=== PATIENT | male | born 1975 | race Caucasian/White ===

== ENCOUNTER 2019-07-04 09:23 | Emergency (ER) | payer OTHER ==
[2019-07-04] MEDS ORDERED: Sodium Chloride 0.9% 10 ML Syringe FLUSH PRN (09:39)
[2019-07-04] MEDS ORDERED: Sodium Chloride 0.9% 1,000 ML IV SCH (09:45)
--- NOTE | 2019-07-04 10:04 | EDM.PDOC ---
<Rashad Casillas - Last Filed: 07/04/19 12:04> ED HPI GENERAL MEDICAL PROBLEM - General Chief Complaint: General Stated Complaint: LIGHT HEADED, SWEATING Time Seen by Provider: 07/04/19 09:55 Source of Information: Reports: Patient History Limitations: Reports: No Limitations - History of Present Illness INITIAL COMMENTS - FREE TEXT/NARRATIVE: 44 year old male with complaints of lightheadedness. Pt states that at about 0900 this morning he was at work and had a BM. Pt came out of the bathroom and was walking to the breakroom and began to feel dizzy, sweaty and nauseated. Pt states that he had many layers of clothing on so he took the layers off and the dizziness did not resolve. Pt states that he then had someone bring him to the ED. Pt states that the same episode happened about a month ago, but resolved on its own. Also reports to having 3 alcoholic beverages last evening. Had a cup of coffee this am. - Related Data Allergies Allergy/AdvReac Type Severity Reaction Status Date / Time No Known Allergies Allergy Verified 07/04/19 09:33 Home Meds: Home Meds . [No Known Home Meds] 07/04/19 [History] Past Medical History - Past Surgical History Musculoskeletal Surgical History: Reports: Other (See Below) Other Musculoskeletal Surgeries/Procedures:: left heel surgery - shattered heel ED ROS GENERAL - Review of Systems Review Of Systems: See Below Constitutional: Reports: Diaphoresis HEENT: Reports: No Symptoms Respiratory: Reports: No Symptoms. Denies: Shortness of Breath, Pleuritic Chest Pain, Cough Cardiovascular: Reports: Lightheadedness. Denies: Chest Pain, Blood Pressure Problem, Edema, Orthopnea, Palpitations, Syncope Endocrine: Reports: No Symptoms GI/Abdominal: Reports: Nausea. Denies: Black Stool, Bloody Stool, Constipation , Melena : Reports: No Symptoms Musculoskeletal: Reports: No Symptoms Skin: Reports: No Symptoms Neurological: Reports: Dizziness, Weakness. Denies: Syncope Psychiatric: Reports: No Symptoms Hematologic/Lymphatic: Reports: No Symptoms ED EXAM, GENERAL - Physical Exam Exam: See Below Exam Limited By: No Limitations General Appearance: Alert, WD/WN, Anxious Eye Exam: Bilateral Eye: PERRL Ears: Normal External Exam Nose: Normal Inspection, Normal Mucosa, No Blood Throat/Mouth: Normal Inspection, Normal Lips, Normal Teeth, Normal Voice, No Airway Compromise Head: Atraumatic, Normocephalic Neck: Normal Inspection, Supple, Non-Tender. No: Lymphadenopathy (L), Lymphadenopathy (R) Respiratory/Chest: No Respiratory Distress, Lungs Clear, Normal Breath Sounds, Chest Non-Tender Cardiovascular: Normal Peripheral Pulses, Regular Rate, Rhythm, No Edema, No Murmur GI/Abdominal: Normal Bowel Sounds, Soft, Non-Tender (Male) Exam: Deferred Rectal (Males) Exam: Deferred Back Exam: Normal Inspection Extremities: Normal Inspection, Normal Range of Motion, Non-Tender, No Pedal Edema, Normal Capillary Refill Neurological: Alert, Oriented, CN II-XII Intact, No Motor/Sensory Deficits Psychiatric: Normal Affect, Normal Mood Skin Exam: Warm, Dry, Intact, Normal Color, No Rash Lymphatic: No Adenopathy Course - Vital Signs Last Recorded V/S: Last Vital Signs Temp 97.5 F 07/04/19 09:30 Pulse 93 07/04/19 09:30 Resp 18 07/04/19 09:30 BP 135/94 H 07/04/19 09:30 Pulse Ox 98 07/04/19 09:30 Orthostatic Blood Pressure [ 130/95 Standing] Orthostatic Blood Pressure [ 125/96 Sitting] Orthostatic Blood Pressure [ 123/89 Supine] - Orders/Labs/Meds Orders: Active Orders 24 hr Category Date Time Status Blood Glucose Check, Bedside [RC] ONETIME Care 07/04/19 09:43 Active EKG 12 Lead [EKG Documentation Completion] [RC] STAT Care 07/04/19 09:40 Active Peripheral IV Care [RC] . DIRECTED Care 07/04/19 09:40 Active Peripheral IV Insertion Adult [OM.PC] Stat Oth 07/04/19 09:40 Ordered Labs: Laboratory Tests 07/04/19 07/04/19 07/04/19 Range/Units 09:32 09:32 09:42 WBC 5.46 (4.23-9.07) K/mm3 RBC 5.10 (4.63-6.08) M/mm3 Hgb 16.1 (13.7-17.5) gm/dl Hct 46.0 (40.1-51.0) % MCV 90.2 (79.0-92.2) fl MCH 31.6 (25.7-32.2) pg MCHC 35.0 (32.2-35.5) g/dl RDW Std Deviation 41.7 (35.1-43.9) fL Plt Count 280 (163-337) K/mm3 MPV 9.0 L (9.4-12.3) fl Neut % (Auto) 44.8 (34.0-67.9) % Lymph % (Auto) 42.7 (21.8-53.1) % [place] % (Auto) 9.5 (5.3-12.2) % Eos % (Auto) 1.8 (0.8-7.0) Baso % (Auto) 0.7 (0.1-1.2) % Neut # (Auto) 2.44 (1.78-5.38) K/mm3 Lymph # (Auto) 2.33 (1.32-3.57) K/mm3 [place] # (Auto) 0.52 (0.30-0.82) K/mm3 Eos # (Auto) 0.10 (0.04-0.54) K/mm3 Baso # (Auto) 0.04 (0.01-0.08) K/mm3 Sodium 142 (136-145) mEq/L Potassium 3.7 (3.5-5.1) mEq/L Chloride 105 (98-107) mEq/L Carbon Dioxide 24 (21-32) mEq/L Anion Gap 16.7 H (5-15) BUN 12 (7-18) mg/dL Creatinine 1.1 (0.7-1.3) mg/dL Est Cr Clr Drug Dosing 92.22 mL/min Estimated GFR (MDRD) > 60 (>60) mL/min BUN/Creatinine Ratio 10.9 L (14-18) Glucose 103 (74-106) mg/dL POC Glucose 85 (70-105) mg/dL Calcium 9.1 (8.5-10.1) mg/dL Total Bilirubin 0.7 (0.2-1.0) mg/dL AST 19 (15-37) U/L ALT 51 (16-63) U/L Alkaline Phosphatase 81 (46-116) U/L Troponin I < 0.017 (0.00-0.056) ng/mL Total Protein 7.7 (6.4-8.2) g/dl Albumin 4.2 (3.4-5.0) g/dl Globulin 3.5 gm/dL Albumin/Globulin Ratio 1.2 (1-2) Meds: Medications Discontinued Medications Generic Name Dose Route Start Last Admin Trade Name Travis PRN Reason Stop Dose Admin Sodium Chloride 1,000 mls @ 999 mls/hr 07/04/19 09:45 07/04/19 09:50 Normal Saline IV 999 mls/hr ONETIME CARLOS Administration Meclizine HCl 25 mg 07/04/19 11:34 07/04/19 11:47 Antivert PO 07/04/19 11:35 25 mg ONETIME ONE Administration Prednisone 40 mg 07/04/19 11:31 07/04/19 11:47 Prednisone PO 07/04/19 11:32 40 mg ONETIME ONE Administration Sodium Chloride 10 ml 07/04/19 09:39 07/04/19 09:53 Saline Flush FLUSH 10 ml ASDIRECTED PRN Administration Keep Vein Open - Re-Assessments/Exams Free Text/Narrative Re-Assessment/Exam: 07/04/19 10:11 Patient placed in the supine position. Denies that dizziness is worse or better at this point. Had patient turn his head from side to side with his eyes closed then open again. Denies change in symptoms. Pt then sat to semi fowlers position and states that dizziness was much worse. Pt placed into supine position. 07/04/19 1135 I went back in to visit with the patient regarding his labs. Pt resting in bed in the semi fowlers position and states that he is still dizzy laying there. I placed him in the supine position and states no change in his symptoms. I then sat him up and he reported severe dizziness and his arms flailed out beside him. Requests that I lay him flat. Once supine, he feels somewhat better but still dizzy. I ordered meclizine and prednisone. Free Text/Narrative Re-Assessment/Exam: 07/04/19 10:13 Nursing obtained orthostatic VS Supine 123/89 HR 84 Sitting 125/96 HR 93 pt reports dizzy and shaky Standing 130/95 HR 98 pt reports dizzy and shaky Departure - Departure Disposition: Home, Self-Care 01 Clinical Impression: Near syncope, Vertigo - Discharge Information Instructions: Vertigo Referrals: Adam Lindsay MD [Primary Care Provider] - Forms: ED Department Discharge, ED Return to Work/School Form Additional Instructions: Rest, moves slowly and carefully until symptoms of dizziness and vertigo resolving, Antivert or meclizine 12.5 mg 3 times daily until symptoms resolve, That is available OTC, however you will have to ask your pharmacist for it. Follow-up clinic if not completely back to normal within 3-4 days as expected, return to ED as needed if symptoms worsening in any way. - My Orders Last 24 Hours: My Active Orders 07/04/19 09:40 EKG 12 Lead [EKG Documentation Completion] [RC] STAT Peripheral IV Care [RC] . DIRECTED Peripheral IV Insertion Adult [OM.PC] Stat 07/04/19 09:43 Blood Glucose Check, Bedside [RC] ONETIME - Assessment/Plan Last 24 Hours: My Active Orders 07/04/19 09:40 EKG 12 Lead [EKG Documentation Completion] [RC] STAT Peripheral IV Care [RC] . DIRECTED Peripheral IV Insertion Adult [OM.PC] Stat 07/04/19 09:43 Blood Glucose Check, Bedside [RC] ONETIME <Zach Phelps - Last Filed: 07/04/19 14:05> Course - Re-Assessments/Exams Free Text/Narrative Re-Assessment/Exam: 07/04/19 14:02 Initial hx and exam was done by [employer] Gomes student. I have also interviewed and examined patient. I agree with the hx and exam as documented. EKG, labs were entirely normal. He was found to have vertigo with motion, especially sitting up in his head from side to side. He then was further treated with oral prednisone and Antivert 25 mg by mouth. With that and time symptoms did improve. awake overnight monitor continued to show sinus rhythm, no ectopy. Discharge instructions as documented. Departure - Departure Time of Disposition: 12:30 Condition: Fair
[2019-07-04] MEDS ORDERED: predniSONE 20 MG Tab PO ONE (11:31)
== END 2019-07-04 12:43 | disposition home or self-care (01) ==
LOC: JD.ED 09:23
DX: R55 Syncope and collapse (principal); R42 Dizziness and giddiness
CPT/HCPCS: 36415; 80053; 82962; 84484; 85025; 93005; 96360; 99284; A9270; J7040; 93010; 99283